=== PATIENT | female | born 1955 | race Asian ===

== ENCOUNTER 2016-07-30 01:42 | Emergency (ER) | payer BC, OTHER ==
[~2016-07-30] VITALS: Ht 162.6 cm; Wt 68.7 kg
[2016-07-30 02:47] VITALS: BP 130/84
== END 2016-07-30 02:47 | disposition home or self-care (01) ==
LOC: ED 01:42
DX: H11.31 Conjunctival hemorrhage, right eye (principal); I10 Essential (primary) hypertension; E11.9 Type 2 diabetes mellitus without complications; Z88.5 Allergy status to narcotic agent; Z88.8 Allergy status to other drugs, medicaments and biological substances